=== PATIENT | male | born 1935 | race Caucasian/White ===

== ENCOUNTER 2022-12-21 16:08 | Emergency (ER) | payer MEDICARE, OTHER, SELFPAY ==
--- NOTE | 2022-12-21 16:12 | ED.EXTPRO ---
HPI - Extremity Problem General Chief complaint: Extremity Injury, Lower Stated complaint: Right Toe Irritation Time Seen by Provider: 12/21/22 16:12 Source: patient Mode of arrival: ambulatory Limitations: no limitations History of Present Illness HPI Narrative: Fazal is a 87-year-old male patient presenting to the clinic today with complaints of right great toe pain x3 days. He reportshe has been having pain, redness, and swelling. History of diabetes and peripheral neuropathy. No known injury. notice streaking today so she brought him into the clinic. No fever, chills, or bodyaches Related Data Home Medications Medication Instructions Recorded Confirmed brimonidine 0.15 % eye drops drp 12/21/22 brimonidine 0.2 % eye drops drp 12/21/22 carvedilol 12.5 mg tablet mg 12/21/22 cholecalciferol (vitamin D3) 125 12/21/22 mcg (5,000 unit) capsule fenofibrate nanocrystallized 145 mg PO 12/21/22 mg tablet ferrous gluconate 324 mg (38 mg mg 12/21/22 iron) tablet finasteride 5 mg tablet mg 12/21/22 fluticasone fur. 100 mcg-umeclid inhalation 12/21/22 62.5 mcg-vilant 25 mcg inhalat.powder (Trelegy Ellipta) spironolactone 25 mg tablet mg 12/21/22 syringe with needle 3 mL 25 gauge 12/21/22 12/21/22 x 1 (BD Luer-Emmanuelle Syringe) tamsulosin 0.4 mg capsule mg PO 12/21/22 Allergies Allergy/AdvReac Type Severity Reaction Status Date / Time No Known Allergies Allergy Verified 12/21/22 16:23 Review of Systems Review of Systems: Pertinent positives per HPI. Patient denies any fever, chills, rash, headache, visual changes, dizziness, cough, runny nose, sore throat, shortness of breath, chest pain, palpitations, nausea, vomiting, diarrhea, constipation, abdominal pain, or any urinary issues. [facility] Social History Social History Smoking status: Smoker, status unknown Alcohol intake: never Comments At the time of my signature, I reviewed and agree with the nursing past medical, surgical, social, and family history. There is no relevant family history pertinent to the patient complaint. Exam Narrative: General: Well-developed, well nourished, in no apparent distress Head: Normocephalic, atraumatic. Cardio: Regular rate and rhythm, s1 and s2 normal, no murmur appreciated. Resp: Clear to auscultation bilaterally, no rhonchi, rales, wheezing or rubs. Musculoskeletal: No deformity, tender to palpation over the right great toe, grossly normal range of motion, redness, erythema, and swelling noted with faint streaking from the great toe into the midfoot muscle strength strong and equal, peripheral pulse strong, no edema, no cyanosis, normal gait and station Course Course Emergency Course: Portions of this record may have been created with voice recognition software. Level of Care: Express Care Visit Vital Signs Vital signs: Vital Signs Temperature 36.9 C 12/21/22 16:25 Pulse Rate 82 12/21/22 16:25 Respiratory Rate 20 12/21/22 16:25 Blood Pressure 136/74 12/21/22 16:25 Pulse Oximetry 100 12/21/22 16:25 Oxygen Delivery Room Air 12/21/22 16:25 Temperature 36.9 C 12/21/22 16:25 Pulse Rate 82 12/21/22 16:25 Respiratory Rate 20 12/21/22 16:25 Blood Pressure 136/74 12/21/22 16:25 Pulse Oximetry 100 12/21/22 16:25 Oxygen Delivery Room Air 12/21/22 16:25 Vital signs reviewed MDM - Extremity (Nontraumatic) MDM Narrative Medical decision making narrative: At the time of visit patient is resting comfortably on the exam table. I suspect he has cellulitis of the right great toe. Prescription for doxycycline was sent to the pharmacy and supportive measures were discussed with the patient. I will give him a Rocephin 500 mg IM shot in the clinic today and have him follow-up with his PCP in 2-3 days. Supportive measures were discussed with the patient and return precautions were also reviewe
[2022-12-21 16:25] VITALS: BP 136/74; PULSE 82; RESP 20; TEMP 36.9; O2SAT 100
[2022-12-21] MEDS: cefTRIAXone 500 MG, LIDOCAINE HCL 1% LOCAL INJ 1 ML IM (16:36)
== END 2022-12-21 17:01 | disposition home or self-care (01) ==
PROVIDERS: Emergency Provider Nurse Practitioner Family
DX: L03.031 Cellulitis of right toe (principal); E78.00 Pure hypercholesterolemia, unspecified; I10 Essential (primary) hypertension
CPT/HCPCS: 96372; 99213; G0463; J0696